=== PATIENT | male | born 1995 | race Caucasian/White ===

== ENCOUNTER 2023-09-27 21:45 | Emergency (ER) | payer MEDICAID, SELFPAY ==
[2023-09-27] MEDS ORDERED: chlordiazePOXIDE HCl 25 MG CAP ONE (22:59)
[2023-09-27 23:14] LABS: #Basophils 0.09 10x3/uL (0.0-0.2); #Eosinphils 0.16 10x3/uL (0.0-0.5); #Monocytes 0.94 10x3/uL (0.0-1.1); #Neutrophils 3.19 10x3/uL (1.5-8.4); %Basophils 1.1 % (0.0-2.0); %Eosinophils 1.9 % (0.0-6.0); %Lymphocytes 47.8 % (18.0-47.0); %Monocytes 11.2 % (0.0-10.0); %Neutrophils 37.9 % (40.0-75.0); Hematocrit 53.5 % (38.8-50.0); Hemoglobin 18.9 g/dL (13.5-17.5); Mean Corpuscular HGB CONC 35.3 g/dL (32.0-36.0); Mean Corpuscular Hemoglobin 32.2 pg (27.0-33.0); Mean Corpuscular Volume 91.1 fL (81.2-95.1); Mean Platelet Volume 9.3 fL (7.4-10.4); Platelet Count 259 10x3/uL (150-450); RBC Distribution Width 13.5 % (11.5-14.5); Red Blood Cell (RBC) Count 5.87 10x6/uL (4.32-5.72); White Blood Cell (WBC) Count 8.4 10x3/uL (3.5-10.5)
[2023-09-27 23:19] LABS: ALT (SGPT) 57 U/L (8-55); AST (SGOT) 95 U/L (5-34); Albumin 4.2 g/dL (3.5-5.0); Alcohol 317.5 mg/dL (Less than 10); Alkaline Phosphatase 55 U/L (40-110); Anion Gap 21 mmol/L (10-20); BUN (Urea Nitrogen) Less than 4 mg/dL (8.9-20.6); Bilirubin, Total 0.6 mg/dL (0.2-1.2); Calc. Creatinine Clearance 0 mL/min (70-130); Calcium 9.2 mg/dL (7.8-10.44); Carbon Dioxide 20 mmol/L (22-29); Chloride 103 mmol/L (98-107); Estimated GFR 125; Globulin 4.1 g/dL (2.4-3.5); Glucose 88 mg/dL (70-105); Potassium 3.6 mmol/L (3.5-5.1); Protein, Total 8.3 g/dL (6.0-8.3); Sodium 140 mmol/L (136-145)
== END 2023-09-28 02:20 | disposition home or self-care (01) ==
LOC: CSHERS 21:45
DX: F10.20 Alcohol dependence, uncomplicated (principal); Z75.3 Unavailability and inaccessibility of health-care facilities; Y90.8 Blood alcohol level of 240 mg/100 ml or more
CPT/HCPCS: 36415; 71045; 80053; 80307; 85025